=== PATIENT | female | born 1975 | race Caucasian/White ===

== ENCOUNTER 2019-10-12 09:32 | Emergency (ER) | payer OTHER ==
[~2019-10-12] VITALS: Ht 157.5 cm; Wt 83.9 kg
[2019-10-12 09:48] VITALS: Ht 157.5 cm; Wt 83.9 kg
[2019-10-12 11:31] LABS: BASOPHIL % 0.3 % (0-2); PLATELET COUNT 171 x10^3mcL (130-400); RED CELL DISTRIBUTION WIDTH 14.1 % (11.5-14.5)
[2019-10-12 11:43] LABS: CARBON DIOXIDE 27.9 mmol/L (21-32); CHLORIDE SERUM 108 mmol/L (98-107); CREATININE SERUM 0.6 mg/dL (0.6-1.0); GFR1 > 60 mL/min; GLUCOSE SERUM 80 mg/dL (74-106); POTASSIUM SERUM 3.9 mmol/L (3.5-5.1); SODIUM SERUM 142 mmol/L (136-145)
[2019-10-12 11:48] LABS: ALBUMIN 3.7 g/dL (3.4-5.0); ALKALINE PHOSPHATASE 86 U/L (46-116); ALT/SGPT 30 U/L (14-59); AST/SGOT 14 U/L (15-37); BILIRUBIN TOTAL 0.81 mg/dL (0.20-1.00); MAGNESIUM 2.2 mg/dL (1.8-2.4); TOTAL PROTEIN, SERUM 6.8 g/dL (6.4-8.2)
[2019-10-12 12:04] LABS: CHOLESTEROL 130 mg/dL (<200); HDL CHOLESTEROL 66 mg/dL (40-60)
[2019-10-12 13:19] LABS: microscopic required? NO
[2019-10-12 13:33] LABS: UA SPECIFIC GRAVITY 1.025 (1.005-1.035); urine erythrocyte NEGATIVE (NEGATIVE)
[2019-10-12 14:27] VITALS: BP 141/80
== END 2019-10-12 14:27 | disposition home or self-care (01) ==
LOC: ED 09:32
PROVIDERS: Emergency Medicine
DX: S83.92XA Sprain of unspecified site of left knee, initial encounter (principal); S80.211A Abrasion, right knee, initial encounter; R53.1 Weakness; I10 Essential (primary) hypertension; Z88.6 Allergy status to analgesic agent; Z90.711 Acquired absence of uterus with remaining cervical stump; W18.30XA Fall on same level, unspecified, initial encounter; Y93.89 Activity, other specified; Y92.89 Other specified places as the place of occurrence of the external cause; Y99.8 Other external cause status
CPT/HCPCS: 90715; J2270; J2405; Q0092